=== PATIENT | female | born 1995 | race Caucasian/White ===

== ENCOUNTER 2017-04-03 13:39 | Emergency (ER) | payer OTHER ==
[~2017-04-03] VITALS: Ht 160 cm; Wt 87.8 kg
[2017-04-03 13:46] VITALS: Ht 160 cm; Wt 87.8 kg
--- NOTE | 2017-04-03 14:10 | EMERGENCY ROOM VISIT NOTE ---
ED Visit Note First contact with patient: 13:50 CHIEF COMPLAINT: Frequent and painful urination HISTORY OF PRESENT ILLNESS: This 22-year-old female presents to the emergency department ambulatory complaining of increased frequency of urination, burning pain with urination, and a feeling of incomplete voiding since yesterday. The patient passes very small volumes of urine with each episode of voiding. The patient does have nonspecific suprapubic abdominal pain. They deny back pain, fever, or vaginal discharge. The patient has not frequent urinary tract infections in the past. The patient does not have history of diabetes, HTN, or urinary tract system dysfunction. Patient feels they are not at risk for STIs. She has not had any nausea or vomiting. REVIEW OF SYSTEMS: A 6 system review of systems was completed with positives and pertinent negatives listed in the HPI. ALLERGIES: No known drug allergies MEDICATIONS: None PMH: polyCystic ovarian syndrome SOCIAL HISTORY: The patient lives locally. PHYSICAL EXAM: Vital Signs: Reviewed Nurse's notes, vital signs stable. GENERAL : This is a 22-year-old female, in no acute distress, they do not appear toxic, well-developed, well-nourished. ABDOMEN: Positive bowel sounds x 4. The abdomen is soft, mildly tender in the suprapubic area, but no masses or organs are felt. There is no CVA tenderness. The skin is clear. NEURO: Alert and oriented to person place and time. EMERGENCY DEPARTMENT COURSE: I examined the patient. She will be started on Bactrim and pyridium for UTI. The patient was discharged home in good condition. Test 04/03/17 14:00 Urine Color DK YELLOW Urine Appearance TURBID (CLEAR) Urine pH 6.0 (4.5-7.5) Urine Specific [place] 1.022 (1.000-1.030) Urine Protein 2+ (NEG) Urine Glucose (UA) NEG (NEG) Urine Ketones 1+ (NEG) Urine Occult Blood 3+ (NEG) Urine Nitrite POS (NEG) Urine Bilirubin NEG (NEG) Urine Urobilinogen NEG (NEG) Urine Leukocyte Esterase LARGE (NEG) Urine WBC (Auto) >30 /hpf (0-5) Urine RBC (Auto) >30 /hpf (0-4) Urine Hyaline Casts (Auto) 1-5 /lpf (0-5) Urine Epithelial Cells (Auto) 10-20 /lpf (0-5) Urine Bacteria (Auto) NEG (NEG) Urine Test NEG (NEG) Current/Historical Medications Scheduled Ibuprofen (Advil), 400 MG PO BID Phenazopyridine HCl (Pyridium), 200 MG PO TID Sulfa/Trimethoprim (Bactrim Ds 800MG/160MG), 1 TAB PO BID Allergies Coded Allergies: No Known Allergies (Unverified , 04/03/17) Vital Signs Date Time Temp Pulse Resp B/P (MAP) Pulse Ox O2 Delivery O2 Flow Rate FiO2 04/03/17 15:20 36.4 87 18 116/74 100 04/03/17 13:46 36.4 87 18 123/88 100 Room Air Laboratory Results Test 04/03/17 14:00 Urine Color DK YELLOW Urine Appearance TURBID (CLEAR) Urine pH 6.0 (4.5-7.5) Urine Specific [place] 1.022 (1.000-1.030) Urine Protein 2+ (NEG) Urine Glucose (UA) NEG (NEG) Urine Ketones 1+ (NEG) Urine Occult Blood 3+ (NEG) Urine Nitrite POS (NEG) Urine Bilirubin NEG (NEG) Urine Urobilinogen NEG (NEG) Urine Leukocyte Esterase LARGE (NEG) Urine WBC (Auto) >30 /hpf (0-5) Urine RBC (Auto) >30 /hpf (0-4) Urine Hyaline Casts (Auto) 1-5 /lpf (0-5) Urine Epithelial Cells (Auto) 10-20 /lpf (0-5) Urine Bacteria (Auto) NEG (NEG) Urine Test NEG (NEG) Departure Information Impression Primary Impression: Urinary tract infection Dispostion Home / Self-Care Condition GOOD Prescriptions Phenazopyridine HCl (Pyridium) 200 Mg Tab 200 MG PO TID for 3 Days, #9 TAB Prov: Mirian Macario PA-C 04/03/17 Sulfa/Trimethoprim (Bactrim Ds 800MG/160MG) Tab 1 TAB PO BID for 5 Days, #10 TAB Prov: Mirian Macario PA-C 04/03/17 Referrals No Doctor, Assigned (PCP) Patient Instructions My [facility], Urinary Tract Infection - [facility] Additional Instructions Bactrim every 12 hours for 5 days Pyridium as prescribed, as needed for urinary tract symptoms such as burning, urinary frequency or urgency. It will turn your urine bright orange Return with any severe back pain, fevers, vomiting Otherwise, follow up with your family doctor next week Problem Qualifiers Primary Impression: Urinary tract infection Urinary tract infection type: acute cystitis Hematuria presence: with hematuria Qualified Codes: N30.01 - Acute cystitis with hematuria
[2017-04-03 14:39] LABS: URINE APPEARANCE TURBID (CLEAR); URINE COLOR DK YELLOW; URINE NITRITE POS (NEG); URINE SPECIFIC GRAVITY 1.022 (1.000-1.030); UROBILINOGEN NEG (NEG); ZZUR CULT IF INDIC CLEAN CATCH YES
[2017-04-03 14:53] LABS: MANUAL MICROSCOPIC REQUIRED? NO; REVIEW REQ? NO; URINE BILIRUBIN NEG (NEG)
[2017-04-03] MEDS ORDERED: IBUP-1050 PO (14:58)
[2017-04-03] MEDS ORDERED: SULF800T23 PO (15:06)
[2017-04-03] MEDS ORDERED: PHEN-876 PO (15:06)
[2017-04-03 15:20] VITALS: BP 116/74; PULSE 87; TEMP 36.4; O2SAT 100
== END 2017-04-03 15:22 | disposition home or self-care (01) ==
LOC: C.EDB 13:42 → C.EDD 15:22
DX: N30.01 Acute cystitis with hematuria (principal); E28.2 Polycystic ovarian syndrome

== ENCOUNTER 2017-07-21 16:21 | Emergency (ER) | payer OTHER ==
[~2017-07-21] VITALS: Ht 160 cm; Wt 91.7 kg
[~2017-07-21 16:21] MED LIST: IBUP-1050 PO
[2017-07-21 16:25] VITALS: TEMP 36.8; Ht 160 cm; Wt 91.7 kg
[2017-07-21] MEDS ORDERED: ALBUT/IPRATROP 3MG/0.5MG NEB 3 ML VIAL INH STA (17:16)
[2017-07-21 17:36] LABS: BASO % 0.3 %; BASO ABS # 0.02 K/uL (0-0.2); COMPLETE YES; EOS % 10.9 %; HEMATOCRIT 38.7 % (37-47); IG% 0.1 %; LYMPH % 22.6 %; MEAN CELL VOLUME 85.1 fL (80-100); MEAN CORPUSCULAR HEMOGLOBIN 28.1 pg (25-34); MEAN CORPUSCULAR HGB CONC 33.1 g/dl (32-36); MEAN PLATELET VOLUME 9.5 fL (7.4-10.4); MONO % 8.3 %; NEUT % 57.8 %; PLATELET COUNT 382 K/uL (130-400); RED BLOOD COUNT 4.55 M/uL (4.2-5.4); WHITE BLOOD COUNT 7.95 K/uL (4.8-10.8)
[2017-07-21 17:58] LABS: ALB/GLOB RATIO 0.8 (0.9-2); BUN/CREATININE RATIO 21.5 (10-20); CALCIUM 9.1 mg/dl (8.5-10.1); CREATININE 0.62 mg/dl (0.60-1.20); POTASSIUM 3.6 mmol/L (3.5-5.1)
--- NOTE | 2017-07-21 18:11 | DIAGNOSTIC IMAGING REPORT ---
CHEST 2 VIEWS ROUTINE CLINICAL HISTORY: Respiratory distress. Shortness of breath. COMPARISON STUDY: No previous studies for comparison. FINDINGS: The cardiac and mediastinal contours are normal. There is no evidence of focal pulmonary consolidation. There is no evidence of failure. No pleural effusions are visualized.[ IMPRESSION: No active disease in the chest. Electronically signed by: Walter Mann M.D. 07/21/2017 6:10 PM Dictated Date/Time: 07/21/2017 6:09 PM
[2017-07-21] MEDS ORDERED: ALBUTEROL HFA 8 GM INHALER INH STA (18:24)
[2017-07-21 19:13] VITALS: BP 97/74; PULSE 84; O2SAT 98
--- NOTE | 2017-07-21 22:27 | EMERGENCY ROOM VISIT NOTE ---
History First contact with patient: 17:01 Chief Complaint: SHORTNESS OF BREATH Stated Complaint: WHEEZING, NON STOP COUGHING, SOB, PAINS Nursing Triage Summary: Wheezing, coughing, SOB x 1 month. Had to leave class today due to coughing. Chest tightness. History of Present Illness The patient is a 22 year old female who presents to the Emergency Room with complaints of wheezing, coughing and shortness of breath for the past month. The patient reports a history of seasonal allergies, and thinks it may be related to that. The patient has never been diagnosed with asthma in the past. She reports chest tightness without chest pain. She denies any recent fevers or chills. She also denies any pain radiating into the back or neck. She rates her overall discomfort a 4 out of 10. Review of Systems HEENT: Denies dizziness, visual problems, hearing loss, tinnitus. Denies difficulty swallowing or oral lesions. PULMONARY: Denies sputum production or hemoptysis. Otherwise see history of present illness. CARDIOVASCULAR: Denies palpitations, dyspnea on exertion, orthopnea or peripheral edema. GASTROINTESTINAL: Denies diarrhea, constipation, nausea, vomiting, or abdominal pain. GENITOURINARY: Denies dysuria, frequency, urgency or nocturia. NEUROLOGIC: Denies history of epilepsy, CVA, TIA or chronic headaches. MUSCULOSKELETAL: Denies history of joint tenderness/swelling. SKIN: Denies rashes or lesions. PSYCHIATRIC: Denies history of depression or mental illness. ENDOCRINE: Denies history of diabetes or thyroid disorders. Past Medical/Surgical History Medical Problems: (1) Acute Cystitis With Hematuria (2) Polycystic Ovarian Syndrome Surgical Problems: (1) No history of previous surgery Family History Unremarkable Social History Smoking Status: Never Smoker Alcohol Use: none Marital Status: single Occupation Status: [employer] student Current/Historical Medications No Active Prescriptions or Reported Meds Physical Exam Vital Signs Date Time Temp Pulse Resp B/P (MAP) Pulse Ox O2 Delivery O2 Flow Rate FiO2 07/21/17 19:13 84 16 97/74 98 07/21/17 17:57 82 16 106/81 99 Room Air 07/21/17 17:32 Room Air 07/21/17 16:26 100 Room Air 07/21/17 16:25 36.8 90 16 128/88 98 Room Air Physical Exam CONSTITUTIONAL: Healthy and well nourished. Alert and oriented X 3 with positive affect. Patient does have a mild nonproductive cough. HEENT: Normocephalic, atraumatic. Pupils equal, round and reactive. Ears and nares are clear. No rhinorrhea noted. No tenderness to palpation or percussion of the frontal or maxillary sinuses. OROPHARYNX: No posterior pharyngeal erythema or tonsillar hypertrophy. NECK: Full active range of motion without discomfort. RESPIRATORY: Clear to auscultation bilaterally with no wheezing, crackles, rhonchi or stridor. Patient does not appear in any acute respiratory distress. CARDIOVASCULAR: Regular rate and rhythm with no murmurs, rubs or gallops. GASTROINTESTINAL: Bowel sounds present in all quadrants. Soft and nontender to palpation. MUSCULOSKELETAL: Full range of motion of all joints without discomfort. INTEGUMENTARY: No rash or other significant dermatologic conditions noted. HEMATOLOGIC: No ecchymosis or petechiae noted. NEUROLOGIC: No focal neurologic deficits noted. Medical Decision & Procedures ER Provider Diagnostic Interpretation: My interpretation of an ECG shows a normal sinus rhythm of [address] elevation or other conduction abnormalities. My interpretation of a two-view chest x-ray does not show any consolidations, pneumothorax or cardiac prominence. Radiologist report is as follows: CHEST 2 VIEWS ROUTINE CLINICAL HISTORY: Respiratory distress. Shortness of breath. COMPARISON STUDY: No previous studies for comparison. FINDINGS: The cardiac and mediastinal contours are normal. There is no evidence of focal pulmonary consolidation. There is no evidence of failure. No pleural effusions are visualized.[ IMPRESSION: No active disease in the chest. Laboratory Results 07/21/17 17:20 Red Blood Count 4.55, Mean Corpuscular Volume 85.1, Mean Corpuscular Hemoglobin 28.1, Mean Corpuscular Hemoglobin Concent 33.1, Mean Platelet Volume 9.5, Neutrophils (%) (Auto) 57.8, Lymphocytes (%) (Auto) 22.6, Monocytes (%) (Auto) 8.3, Eosinophils (%) (Auto) 10.9, Basophils (%) (Auto) 0.3, Neutrophils # (Auto ) 4.59, Lymphocytes # (Auto) 1.80, Monocytes # (Auto) 0.66, Eosinophils # (Auto ) 0.87, Basophils # (Auto) 0.02 07/21/17 17:20 Test 07/21/17 17:20 White Blood Count 7.95 K/uL (4.8-10.8) Red Blood Count 4.55 M/uL (4.2-5.4) Hemoglobin 12.8 g/dL (12.0-16.0) Hematocrit 38.7 % (37-47) Mean Corpuscular Volume 85.1 fL (80-100) Mean Corpuscular Hemoglobin 28.1 pg (25-34) Mean Corpuscular Hemoglobin Concent 33.1 g/dl (32-36) Platelet Count 382 K/uL (130-400) Mean Platelet Volume 9.5 fL (7.4-10.4) Neutrophils (%) (Auto) 57.8 % Lymphocytes (%) (Auto) 22.6 % Monocytes (%) (Auto) 8.3 % Eosinophils (%) (Auto) 10.9 % Basophils (%) (Auto) 0.3 % Neutrophils # (Auto) 4.59 K/uL (1.4-6.5) Lymphocytes # (Auto) 1.80 K/uL (1.2-3.4) Monocytes # (Auto) 0.66 K/uL (0.11-0.59) Eosinophils # (Auto) 0.87 K/uL (0-0.5) Basophils # (Auto) 0.02 K/uL (0-0.2) RDW Standard Deviation 39.5 fL (36.4-46.3) RDW Coefficient of Variation 12.9 % (11.5-14.5) Immature Granulocyte % (Auto) 0.1 % Immature Granulocyte # (Auto) 0.01 K/uL (0.00-0.02) D-Dimer 330 ug/L FEU (0-500) Anion Gap 7.0 mmol/L (3-11) Est Creatinine Clear Calc Drug Dose 153.0 ml/min Estimated GFR () 148.3 Estimated GFR (Non- 128.0 BUN/Creatinine Ratio 21.5 (10-20) Calcium Level 9.1 mg/dl (8.5-10.1) Total Bilirubin 0.4 mg/dl (0.2-1) Aspartate Amino Transf (AST/SGOT) 22 U/L (15-37) Alanine Aminotransferase (ALT/SGPT) 41 U/L (12-78) Alkaline Phosphatase 88 U/L (45-117) Total Protein 8.4 gm/dl (6.4-8.2) Albumin 3.8 gm/dl (3.4-5.0) Globulin 4.6 gm/dl (2.5-4.0) Albumin/Globulin Ratio 0.8 (0.9-2) The above labs were reviewed and were grossly normal, including d-dimer. Medications Administered Medications (Trade) Dose Ordered Sig/Bala Route Start Time Stop Time Status Last Admin Dose Admin Albuterol/ Ipratropium (Duoneb) 3 ml NOW STAT INH 07/21/17 17:16 07/21/17 17:18 DC 07/21/17 17:31 3 ML Albuterol (Ventolin Hfa Inhaler) 2 puffs ONE STAT INH 07/21/17 18:24 07/21/17 18:25 DC 07/21/17 18:46 2 PUFFS ED Course Patient history and physical exam were performed. Nurse's notes were reviewed. Vital signs were reviewed and were also normal. Did discuss several different etiologies including infection, asthma and pulmonary embolus. I did suggest further workup, and the patient was in agreement. IV access was established, and labs were drawn. The patient was administered a unit dose DuoNeb treatment with significant reduction of her cough. ECG was normal, along with a two-view chest x-ray. Labs were also reviewed with a normal d- dimer. The patient was provided a Ventolin metered-dose inhaler and AeroChamber from the emergency department. She was encouraged to administer 2 puffs every 4 hours for relief of her cough. She may also take an antihistamine and other OTC cough medications as needed. She was instructed to follow-up with her PCP or a entry level chemist for further reevaluation. She was encouraged to return for any progressively worsening symptoms. The patient was happy with plan of care, and voiced understanding of all discharge instructions. Medical Decision See previous section. Workup today is not suggestive of pulmonary embolus, pneumonia or pneumothorax. Patient does have a history of seasonal allergies. She is afebrile and without leukocytosis. She does not have the symptoms of upper respiratory infection. I do feel that the patient does warrant a pulmonary function test that she has had the symptoms now for quite some time, and asthma should be ruled out. Medication Reconcilliation Current Medication List: was personally reviewed by me Blood Pressure Screening Patient's blood pressure: Normal blood pressure Impression Primary Impression: Wheezing Additional Impression: History of seasonal allergies Departure Information Prescriptions No Active Prescriptions or Reported Meds Referrals No Doctor, Assigned (PCP) Patient Instructions My [facility] Problem Qualifiers
== END 2017-07-21 18:50 | disposition home or self-care (01) ==
LOC: C.EDB 16:22 → C.EDC 18:50
DX: R06.2 Wheezing (principal); J30.2 Other seasonal allergic rhinitis; E28.2 Polycystic ovarian syndrome

== ENCOUNTER → 2017-10-08 | Outpatient (CLI) | payer OTHER ==
[2017-10-08 11:20] LABS: ALT/SGPT 30 U/L (12-78); AST/SGOT 12 U/L (15-37); BLOOD UREA NITROGEN 15 mg/dl (7-18); BUN/CREATININE RATIO 24.2 (10-20); CALCIUM 8.9 mg/dl (8.5-10.1); CARBON DIOXIDE 30 mmol/L (21-32); CHLORIDE 105 mmol/L (98-107); CREATININE 0.61 mg/dl (0.60-1.20); GLUCOSE 100 mg/dl (70-99); POTASSIUM 3.7 mmol/L (3.5-5.1); SODIUM 138 mmol/L (136-145)
[2017-10-08 11:23] LABS: ALB/GLOB RATIO 0.9 (0.9-2); ALKALINE PHOSPHATASE 85 U/L (45-117); ESTIMATED AVERAGE GLUCOSE 111 mg/dl; HA1C FLAG Normal (Normal)
--- NOTE | 2017-10-13 11:21 | CODING QUERY MEDICAL NECESSITY ---
SUPPORTING DIAGNOSIS NEEDED A supporting diagnosis is required for the test/procedure performed on this patient in order for us to be reimbursed by the patient's insurance. Please provide a supporting diagnosis for the following test/procedure listed below next to the test name along with your signature. *If there is no additional diagnosis for this patient that would support the following test/procedure please document that below next to the test/procedure. Test(s)/Procedure(s) that require a supporting diagnosis: * HEMOGLOBIN A1C DIAGNOSIS: Provider Signature: Date: Thank you Arianna Abrams [facility] Information Management Once completed, please kindly fax back to [phone] For questions please call [phone]
== END | disposition home or self-care (01) ==
LOC: C.LABBC 08:40 → MERGE 08:40
PROVIDERS: ATTEND Physician Assistant
DX: E28.2 Polycystic ovarian syndrome (principal)

== ENCOUNTER → 2018-02-03 | Outpatient (CLI) | payer OTHER ==
--- NOTE | 2018-02-03 15:29 | MAMMOGRAPHY REPORT ---
ULTRASOUND OF LEFT BREAST: 02/03/2018 CLINICAL HISTORY: 22-year-old woman presents after she developed pains in her left breast 1-1/2 month s ago. During palpation over the area of pain she also found a small lump approximately 5 mm x 1.5 c m. No family history of breast cancer. No skin erythema or nipple discharge. COMPARISON: No prior exams were available for comparison. FINDINGS: The patient pointed out the lump in the 5:00 left breast approximately 6 cm from the nipple . On palpation, there is a discrete soft ovoid lesion approximately 5 x 15 mm that is mobile and fee ls like adjacent breast parenchyma. Targeted ultrasound was performed over the lump and there is sono graphically normal tissue without evidence of a discrete solid or cystic mass. No focal skin thicken ing or drainable fluid collection. IMPRESSION: ACR BI-RADS CATEGORY 1: NEGATIVE There is no targeted sonographic evidence of malignancy or other suspicious abnormality in the 5:00 l eft breast, 6 cm from the nipple, in the area of pain and lump pointed out by the patient. Therefore , continued monitoring is recommended as well as clinical follow-up, as biopsy of a clinically suspic ious mass should not be precluded by negative imaging. These results and recommendations were discussed with the patient at the time of the exam. Lainey Masterson M.D. ay/:02/03/2018 08:44:32 Functional Skills Tutor: Dr. Lainey Masterson, [facility] [address] letter sent: Normal 1/2 BI-RADS Code: ACR BI-RADS Category 1: Negative
== END | disposition home or self-care (01) ==
LOC: C.MAMM 08:21
PROVIDERS: ATTEND Family Medicine Adult Medicine
DX: N63.20 Unspecified lump in the left breast, unspecified quadrant (principal)